=== PATIENT | male | born 1960 | race Hispanic/Latino ===

== ENCOUNTER 2017-04-28 11:27 | Emergency (ER) | payer SELFPAY ==
[~2017-04-28] VITALS: Ht 170.2 cm; Wt 89.8 kg
--- OUTSIDE RECORDS SUMMARY | 2017-04-28 11:29 | XMS REPORT ---
Author Author [facility] Address Unknown Phone Unavailable Care Team Providers Care Life Agent Name Role Phone SHAHRAM SHINE Unavailable Unavailable Problems This patient has no known problems. Allergies, Adverse Reactions, Alerts This patient has no known allergies or adverse reactions. Medications This patient has no known medications. Encounters Start Date/Time End Date/Time Encounter Type Admission Type Attending Clinicians Care Facility Care Department Encounter ID 2016-05-25 07:31:00 2016-05-25 11:40:00 Outpatient C SHAHRAM SHINE [facility] [id number]
[2017-04-28] MEDS: TETRACAINE HCL 0.5% OPTH SOLN 4 ML BTL OP ONE ×2 (11:40→11:48)
[2017-04-28 12:14] VITALS: BP 152/96
== END 2017-04-28 12:13 | disposition home or self-care (01) ==
LOC: ER 11:27
DX: H92.01 Otalgia, right ear (principal); T52.0X1A Toxic effect of petroleum products, accidental (unintentional), initial encounter
CPT/HCPCS: 99283